=== PATIENT | male | born 1990 | race Caucasian/White ===

== ENCOUNTER 2016-11-25 10:00 | Emergency (ER) | payer BC ==
[2016-11-25 11:02] VITALS: BP 146/78
--- NOTE | 2016-11-25 12:40 | UC ---
Throat Pain/Nasal Luis E HPI - HPI Summary HPI Summary: nasal and sinus congestion, cough, generalized aches, HO, sweats. Called into work yesterday and today. States sxs started yesterday (note RN states 3 days) . Had a sore throat the day before that went away. But states today is day 2 of "feeling like crap". Did not have a flu shot. - History of Current Complaint Chief Complaint: UCRespiratory Stated Complaint: UPPER RESPIRATORY Time Seen by Provider: 11/25/16 12:23 Hx Obtained From: Patient Onset/Duration: Gradual Onset, Lasting Days, Still Present Severity: Moderate Pain Intensity: 3 Pain Scale Used: 0-10 Numeric Cough: Nonproductive Associated Signs & Symptoms: Positive: Nasal Discharge, Other - sweats - Epiglottits Risk Factors Epiglottis Risk Factors: Negative - Allergies/Home Medications Allergies/Adverse Reactions: Allergies Allergy/AdvReac Type Severity Reaction Status Date / Time No Known Allergies Allergy Verified 11/25/16 11:02 PMH/Surg Hx/FS Hx/Imm Hx Previously Healthy: Yes - Surgical History Surgical History: None - Family History Known Family History: Positive: Hypertension - Social History Occupation: Employed Full-time - [employer] Alcohol Use: Occasionally Substance Use Type: None Smoking Status (MU): Never Smoked Tobacco Review of Systems Constitutional: Other - sweats Skin: Negative Eyes: Negative ENT: Sore Throat Respiratory: Cough Cardiovascular: Negative Gastrointestinal: Negative Genitourinary: Negative Motor: Negative Neurovascular: Negative Musculoskeletal: Myalgia Neurological: Headache Psychological: Negative All Other Systems Reviewed And Are Negative: Yes Physical Exam Triage Information Reviewed: Yes Appearance: Well-Nourished, Ill-Appearing Vital Signs: Initial Vital Signs Temp 97.8 F 11/25/16 10:59 Pulse 68 11/25/16 10:59 Resp 14 11/25/16 10:59 BP 146/78 11/25/16 10:59 Pulse Ox 100 11/25/16 10:59 Vital Signs Reviewed: Yes Eyes: Positive: Conjunctiva Clear ENT: Positive: Hearing grossly normal, Pharyngeal erythema, TMs normal Neck: Positive: Supple, Nontender, No Lymphadenopathy Respiratory: Positive: Lungs clear, Normal breath sounds, No respiratory distress Cardiovascular: Positive: RRR, No Murmur, Pulses Normal, Brisk Capillary Refill Abdomen Description: Positive: Nontender, No Organomegaly, Soft Musculoskeletal: Positive: Strength Intact, ROM Intact Neurological: Positive: Alert, Muscle Tone Normal Psychological Exam: Normal Skin Exam: Normal Throat Pain/Nasal Course/Dx - Course Course Of Treatment: discussed with pt. Am making a clinical dx of influenza, as influenza is currently high prevalence in this area and pt did not have flu shot and his sxs are all consistent with influenza. discussed risks and benefits of taking tamiflu since he fits the window to take the med, and pt wants to try the med. - Differential Dx/Diagnosis Differential Diagnosis/HQI/PQRI: Influenza, Pharyngitis, Sinusitis, URI Provider Diagnoses: influenza, clinical dx Discharge - Discharge Plan Condition: Stable Disposition: HOME Prescriptions: Oseltamivir CAP* [Tamiflu CAP*] 75 mg PO BID #10 cap Patient Education Materials: Influenza (ED) Forms: *Work Release Referrals: Nils Wisdom MD [Primary Care Provider] - 3 Days
== END 2016-11-25 12:53 | disposition home or self-care (01) ==
LOC: UCCORT 10:00
DX: J11.1 Influenza due to unidentified influenza virus with other respiratory manifestations (principal); L75.0 Bromhidrosis; R05 Cough
CPT/HCPCS: 99201; G0463

== ENCOUNTER 2018-10-14 09:00 | Emergency (ER) | payer BC ==
[2018-10-14 10:00] VITALS: BP 122/71
--- NOTE | 2018-10-14 10:27 | UC ---
UC General HPI - HPI Summary HPI Summary: c/o cough, chills, headache, runny nose x 3 days. States started with a sore throat that has now resolved. No body aches, cp, sob. - History of Current Complaint Chief Complaint: UCGeneralIllness Stated Complaint: 2 DYLLAN-FLU LIKE SYMPTOMS Time Seen by Provider: 10/14/18 09:56 Hx Obtained From: Patient Onset/Duration: Gradual Onset Timing: Constant Pain Intensity: 0 Associated Signs & Symptoms: Positive: Cough, Headache. Negative: Chest Pain - Allergy/Home Medications Allergies/Adverse Reactions: Allergies Allergy/AdvReac Type Severity Reaction Status Date / Time No Known Allergies Allergy Verified 10/14/18 09:57 Home Medications: Home Medications Acetaminophen [Acetaminophen Extra Strength] 500 mg PO ONCE PRN 10/14/18 [ History Confirmed 10/14/18] PMH/Surg Hx/FS Hx/Imm Hx Previously Healthy: Yes - Surgical History Surgical History: None - Family History Known Family History: Positive: Hypertension - Social History Alcohol Use: Occasionally Substance Use Type: None Smoking Status (MU): Never Smoked Tobacco - Immunization History Vaccination Up to Date: Yes Review of Systems All Other Systems Reviewed And Are Negative: Yes Constitutional: Positive: Chills Skin: Positive: Negative Eyes: Positive: Negative ENT: Positive: Sore Throat, Sinus Congestion Respiratory: Positive: Cough Cardiovascular: Positive: Negative Gastrointestinal: Positive: Negative Genitourinary: Positive: Negative Motor: Positive: Negative Neurovascular: Positive: Negative Musculoskeletal: Positive: Negative Neurological: Positive: Headache Psychological: Positive: Negative Is Patient Immunocompromised?: No Physical Exam Triage Information Reviewed: Yes Appearance: Well-Appearing Vital Signs: Initial Vital Signs Temp 98.5 F 10/14/18 09:56 Pulse 68 10/14/18 09:56 Resp 15 10/14/18 09:56 BP 122/71 10/14/18 09:56 Pulse Ox 98 10/14/18 09:56 Vital Signs Reviewed: Yes Eyes: Positive: Conjunctiva Clear ENT: Positive: Pharynx normal, Nasal congestion, TMs normal. Negative: Nasal drainage, Sinus tenderness Neck: Positive: Supple, Nontender, No Lymphadenopathy Respiratory: Positive: No respiratory distress, Decreased breath sounds - RLL with wheezes and end isp crackles Cardiovascular: Positive: RRR, No Murmur Abdomen Description: Positive: Nontender, No Organomegaly, Soft Bowel Sounds: Positive: Present Musculoskeletal: Positive: ROM Intact Neurological: Positive: Alert Psychological: Positive: Age Appropriate Behavior Skin Exam: Normal Diagnostics - Laboratory Diagnostic Studies Completed/Ordered: Rapid flu=negative - Radiology No standard instances Radiology Interpretation Completed By: Radiologist - No radiographic evidence of acute cardiopulmonary disease. Course/Dx - Differential Dx - Multi-Symptom Differential Diagnoses: Other - influenza, bronchitis, pneumonia. focal eindings in RLL raises concern for early pneumonia despite negative cxr and flu is negative thus will cover for a clinical dx of early pneumonia - Diagnoses Provider Diagnosis: Community acquired pneumonia Discharge - Sign-Out/Discharge Documenting (check all that apply): Patient Departure All imaging exams completed and their final reports reviewed: Yes - Discharge Plan Condition: Stable Disposition: HOME Prescriptions: DOXYcycline CAP(*) [DOXYcycline 100MG CAP(*)] 100 mg PO BID 10 Days #20 cap Patient Education Materials: Community Acquired Pneumonia (DC) Referrals: Nils Wisdom MD [Primary Care Provider] - 7 Days - Billing Disposition and Condition Condition: STABLE Disposition: Home - Attestation Statements Provider Attestation: I was available for consult. This patient was seen by the CLARI. The patient was not presented to , seen by or examined by oh -Ace Olvera MD
== END 2018-10-14 11:22 | disposition home or self-care (01) ==
LOC: UCCORT 09:00
DX: J18.9 Pneumonia, unspecified organism (principal)
CPT/HCPCS: 71046; 99212; G0463

== ENCOUNTER 2019-09-03 10:04 | Day surgery (SDC) | payer BC ==
--- NOTE | 2019-08-14 10:16 | HP ---
CC: Dr. Wisdom. * PREOPERATIVE HISTORY AND PHYSICAL: DATE OF ADMISSION: 09/03/19 This patient is scheduled for same day surgery admission by Dr. Blood on 09/03/19. DATE OF PREOPERATIVE HISTORY AND PHYSICAL EXAMINATION: 08/13/19 ATTENDING SURGEON: Dr. Yo Blood * (dictated by Dr. Elizabeth Mars, [employer]) CHIEF COMPLAINT: Right groin hernia. HISTORY OF PRESENT ILLNESS: The patient is a 29-year-old male who was referred to Dr. Blood by Dr. Wisdom for evaluation of a right inguinal hernia. The patient noticed a bulge in the right groin while blowing his nose or coughing. He first noticed that in March 2019. He denied pain or change in bowel or bladder habits. He is physically active and denies any limits to his activity related to the right inguinal hernia. Dr. Blood examined the patient and noted a reducible right inguinal hernia and a small less than [address] Blood discussed the findings with the patient and explained the nature of hernias and their potential complications and recommended surgical repair. Surgical options for repair were discussed and the patient opted for laparoscopic right inguinal hernia repair with mesh as a same day surgery procedure. Dr. Blood described the nature of the surgical procedure and the relevant risks and benefits and today I reviewed the expected postoperative care and recovery. The patient has had a chance to ask questions and stated that he understands the information and is satisfied with the answers given to his questions. He will sign surgical consent on the day of surgery. PAST MEDICAL HISTORY: Generally healthy. No acute or chronic conditions. PAST SURGICAL HISTORY: [place] teeth extraction. MEDICATIONS: 1. Meloxicam 15 mg p.o. p.r.n. 2. Flonase, allergy relief 1 puff nasal daily. ALLERGIES: No known drug allergies. FAMILY HISTORY: Father with history of myocardial infarction at age 43 and underwent coronary artery bypass grafting and has a history of atrial fibrillation and is alive and currently well. Mother is alive and well. No family history of anesthesia complications, bleeding tendencies or clotting disorders. SOCIAL HISTORY: He is single. He has never been a smoker. 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 REVIEW OF SYSTEMS: Constitutional: No fevers, chills, excessive fatigue or weight loss. General: No history of anesthesia complications, bleeding tendencies or blood clots. Endocrine: No diabetes or thyroid disease. Hematologic: No easy bruising. Respiratory: No dyspnea on exertion or chronic cough. He reports that he was diagnosed with pneumonia in spring. Cardiovascular: No anginal chest pain or palpitations. Gastrointestinal : No nausea vomiting, diarrhea, GI bleeding or constipation, no change in bowel habits. Genitourinary: No dysuria. Musculoskeletal: Normal strength and tone. Integumentary: No chronic rashes or skin changes. Neurologic: No headache or blurred vision or areas of focal weakness or numbness. Psychiatric : No insomnia, anxiety or depression. PHYSICAL EXAMINATION GENERAL SURVEY: The patient is a 29-year-old male well-developed well- nourished in no acute distress. VITAL SIGNS: Height 66 inches, weight 155 pounds, body mass index 25, blood pressure 104/66, pulse 54 and regular, respiratory rate 12, temperature 97.5 tympanic. HEENT: Benign. NECK: Supple. No cervical lymphadenopathy. BACK: No CVA tenderness. LUNGS: Breath sounds bilaterally clear and equal. HEART: Regular rate and rhythm. No murmurs or rubs appreciated. ABDOMEN: Active bowel sounds, soft, nondistended, nontender throughout. Small umbilical hernia with less than 1 cm defect. Inguinal exam done by Dr. Blood revealed a reducible right inguinal hernia, no left inguinal hernia. GENITALIA AND RECTAL EXAM: Done recently, not repeated. EXTREMITIES: Warm without edema or skin ulceration. NEUROLOGIC: Alert and oriented x3. Steady gait. SKIN: Warm, dry and intact. IMPRESSION: Right inguinal hernia. PLAN: Same day surgery admission to Dr. Blood service on 09/03/19 for laparoscopic right inguinal hernia repair with mesh. ELIZABETH MARS, [employer] [id number]/[facility] #: [id number] LAURA
[~2019-09-03 10:04] MED LIST: Acetaminophen TAB* 325 MG PO ONE; Buffered Lidocaine 1% SYRIN* 1 ML/SYRINGE INTRADERM ONE; Lactated Ringers 1000 ML Bag* 1,000 ML IV SCH
[2019-09-03] MEDS ORDERED: Acetaminophen TAB* 325 MG ONE (11:11)
[2019-09-03] MEDS ORDERED: Buffered Lidocaine 1% SYRIN* 1 ML/SYRINGE INTRADERM ONE (11:11)
[2019-09-03] MEDS ORDERED: ceFAZolin 2 GM in NS PREMIX(*) 2 GM/100 ML BAG IVPB ONE (11:11)
[2019-09-03] MEDS ORDERED: Midazolam* 1 MG/ML 2 ML VIAL (2 MG) ONE (12:20)
[2019-09-03] MEDS ORDERED: Propofol* 10 MG/ML 20 ML BTL ONE (12:20)
[2019-09-03] MEDS ORDERED: fentaNYL* 50 MCG/ML 5 ML VIAL (250 MCG VIAL) ONE (12:20)
[2019-09-03] MEDS ORDERED: Lidocaine 2% PF * 5 ML VIAL ONE (12:21)
[2019-09-03] MEDS ORDERED: Bupivacaine 0.25% EPI 200,000* 30 ML SDV ONE (12:44)
[2019-09-03] MEDS ORDERED: Rocuronium* 10 MG/ML VIAL ONE ×2 (12:56)
[2019-09-03] MEDS ORDERED: Dexamethasone IV* 4 MG/ML 1 ML (4 MG) ONE (13:35)
[2019-09-03] MEDS ORDERED: HYDROmorphone INJ1* 1 MG/ML SYRINGE ONE ×2 (13:36→15:06)
[2019-09-03] MEDS ORDERED: Naloxone* 0.4 MG/ML 1 ML VIAL IV PRN (13:38)
[2019-09-03] MEDS ORDERED: oxyCODONE TAB* 5 MG TAB PO PRN (13:38)
[2019-09-03] MEDS ORDERED: PROCHLORPERAZINE INJ 5 MG/ML 2 ML VIAL IV PRN (13:38)
[2019-09-03] MEDS ORDERED: Ondansetron INJ* 2 MG/ML VIAL IV PRN (13:38)
[2019-09-03] MEDS ORDERED: diPHENhydraMINE IV* 50 MG/ML 1 ml VIAL (BENADRYL) IV PRN (13:38)
[2019-09-03] MEDS ORDERED: Ondansetron INJ* 2 MG/ML VIAL ONE (14:34)
[2019-09-03] MEDS ORDERED: Glycopyrrolate IV* 0.2 MG/ML 1 ML VIAL ONE (14:34)
[2019-09-03] MEDS ORDERED: Neostigmine Methylsulfate* 3 MG/3 ML SYRINGE ONE (14:34)
[2019-09-03] MEDS ORDERED: Remifentanil* 2 MG VIAL ONE (14:36)
[2019-09-03] MEDS ORDERED: Ketorolac INJ* 30 MG/ML 1 ML VIAL ONE (15:07)
[2019-09-03] MEDS: HYDROmorphone INJ1* 1 MG/ML SYRINGE IV PRN ×3 (15:08→15:34)
--- NOTE | 2019-09-03 15:09 | BRIEFOPN ---
Brief Operative/Procedure Note - Operation Details Pre-Op Diagnosis: right inguinal hernia Post-Op Diagnosis: same; indirect Procedures: laparoscopic (trans-abdominal) repair LIH w/ mesh Surgeon(s)/Proceduralists: Jeremi. Assist: LASHA Reyes Anesthesia: GET. Fluids: 1500 ml RL Estimated Blood Loss: none Findings: as above Specimen(s)/Culture(s) Description: none Complications: none
[2019-09-03] MEDS ORDERED: Ketorolac INJ* 30 MG/ML 1 ML VIAL IV PRN (15:19)
[2019-09-03] MEDS ORDERED: oxyCODONE TAB* 5 MG TAB ONE (15:52)
[2019-09-03 16:33] VITALS: BP 136/71
--- NOTE | 2019-09-03 22:31 | OP ---
CC: Nils Wisdom MD * DATE OF OPERATION: 09/03/19 - [facility] DATE OF : 88 SURGEON: Yo Blood MD. SUPERINTENDENT FACTORY: LASHA Arellano. ANESTHESIOLOGIST: Verna Zapata MD. ANESTHESIA: General endotracheal. PRE-OP DIAGNOSIS: Right inguinal hernia. POST-OP DIAGNOSIS: Right inguinal hernia. OPERATIVE PROCEDURE: Laparoscopic preperitoneal repair of right inguinal hernia (REMI). ESTIMATED BLOOD LOSS: Minimal. IV FLUIDS: Crystalloid. SPECIMEN: None. DRAINS: None. COMPLICATIONS: None. COUNTS: The instrument, needle and sponge counts correct. DESCRIPTION OF PROCEDURE: The patient was brought to the operating room and placed on the table supine. Sequential compression devices were placed on both lower extremities. General anesthesia was administered. The abdomen was prepped and draped in the usual sterile fashion and a time-out was performed. Local anesthetic was infiltrated into the skin and soft tissue prior to making each incision. Entry to the abdomen was through a transumbilical vertical incision using an open technique. After accessing the peritoneal cavity, carbon dioxide was insufflated to a pressure of 15 mmHg through an 11 mm trocar. Under direct visualization, 5 mm trocars were placed in the left lower quadrant and right lower quadrant. The patient was noted to have an indirect right inguinal hernia. There was no left inguinal hernia noted. The peritoneum was incised approximately 8 cm above the ilioinguinal ligament extending from approximately the anterior superior iliac spine to the medial umbilical ligament on the right. The preperitoneal space was entered bluntly and dissection proceeded down to the midline, where the symphysis pubis and Migel ligament were identified. The inferior epigastric vessels were identified and preserved anteriorly. The hernia sac was preserved and dissected free from the spermatic cord, completed reducing the sac. The dissection proceeded down laterally and in a retroperitoneal direction in order to create adequate space for a 10 x 15 cm ProGrip mesh. This was placed to cover the direct, indirect and femoral spaces. The peritoneum was approximated with a 3-0 V-Loc 90 suture in running fashion. The hemostasis was assured. The ports were removed under direct visualization. Carbon dioxide was released. Umbilical wound was closed with 0 Vicryl in 3-way fashion to approximate the fashion. Skin incisions were closed with 4-0 Monocryl in subcuticular fashion. Steri-Strips applied. The patient tolerated the procedure well and was extubated and transferred to recovery in stable condition. [id number]/[facility] #: [id number] MTDD
== END 2019-09-03 17:10 | disposition home or self-care (01) ==
LOC: OR 10:04
PROVIDERS: ATTEND Surgery
DX: K40.90 Unilateral inguinal hernia, without obstruction or gangrene, not specified as recurrent (principal)
CPT/HCPCS: A9270-GY; C1781; J0690; J1100; J1170; J1885; J2250; J2405; J2704; J2710; J3010